=== PATIENT | female | born 1970 | race Caucasian/White ===

== ENCOUNTER 2020-11-01 08:19 | Outpatient (CLI) | payer BC ==
[2020-11-01] VITALS (8 sets, daily range): BP systolic 91–124; BP diastolic 62–80; PULSE 58–74
[~2020-11-01] VITALS: Ht 167.6 cm; Wt 57.4 kg
[~2020-11-01 08:19] MED LIST: NEURONTIN100 MG/CAP PO
[2020-11-01 10:11] LABS: GLUCOSE,CSF 58 mg/dL (40-70); TOTAL PROTEIN,CSF 33 mg/dL (15-45)
[2020-11-01 10:30] LABS: CSF APPEARANCE CLEAR; CSF COLOR COLORLESS
[2020-11-01 10:31] LABS: CSF RBC 1 /mm3 (0-0)
[2020-11-01 11:06] LABS: CSF MONONUCLEAR 0 % (70-100)
[2020-11-01 11:07] LABS: CSF POLYMORPHONUCLEAR 14 % (0-6)
--- NOTE | 2020-11-01 11:44 | NUR ---
DC instructions reviewed with pt, she expresses understanding. She has steady gait in room. Has tolerated PO without issue. She is assisted out by wheelchair to 's car.
== END 2020-11-01 13:11 | disposition home or self-care (01) ==
LOC: COL.RAD 08:19
PROVIDERS: Psychiatry & Neurology Neurology
DX: H53.9 Unspecified visual disturbance (principal); R42 Dizziness and giddiness; R53.83 Other fatigue; G43.109 Migraine with aura, not intractable, without status migrainosus